=== PATIENT | male | born 1955 | race Caucasian/White ===

== ENCOUNTER 2023-07-16 09:31 | Emergency (ER) | payer MEDICARE ==
[2023-07-16] MEDS: Doxycycline 100 MG Cap PO ONE (10:30)
== END 2023-07-16 10:42 | disposition home or self-care (01) ==
LOC: JP.ED 09:31
DX: S70.362A Insect bite (nonvenomous), left thigh, initial encounter (principal); I10 Essential (primary) hypertension; Z79.899 Other long term (current) drug therapy; Z88.8 Allergy status to other drugs, medicaments and biological substances; W57.XXXA Bitten or stung by nonvenomous insect and other nonvenomous arthropods, initial encounter
CPT/HCPCS: 99281; A9270

== ENCOUNTER 2024-07-28 08:33 | Emergency (ER) | payer MEDICARE ==
[2024-07-28] MEDS: Doxycycline 100 MG Cap PO ONE (09:03)
== END 2024-07-28 09:07 | disposition home or self-care (01) ==
LOC: JP.ED 08:33
DX: S30.861A Insect bite (nonvenomous) of abdominal wall, initial encounter (principal); I10 Essential (primary) hypertension; E78.00 Pure hypercholesterolemia, unspecified; Z79.899 Other long term (current) drug therapy; Z88.8 Allergy status to other drugs, medicaments and biological substances; W57.XXXA Bitten or stung by nonvenomous insect and other nonvenomous arthropods, initial encounter
CPT/HCPCS: 99281; A9270; 99283